=== PATIENT | female | born 1980 | race American Indian/Alaskan Native ===

== ENCOUNTER 2018-06-30 12:12 | Outpatient (CLI) | payer OTHER | END 2018-06-30 12:51 | disposition home or self-care (01) | LOC: NST 12:12 | DX: Z34.83 Encounter for supervision of other normal pregnancy, third trimester (principal) ==

== ENCOUNTER 2018-07-21 11:13 | Outpatient (CLI) | payer OTHER | END 2018-07-21 13:19 | disposition home or self-care (01) | LOC: NST 11:13 | DX: Z34.83 Encounter for supervision of other normal pregnancy, third trimester (principal) ==

== ENCOUNTER 2018-07-27 17:23 | Inpatient (IN) | payer OTHER ==
[~2018-07-27] VITALS: Ht 160 cm; Wt 2.3 kg
[2018-07-27] MEDS ORDERED: METHYLDOPA250 MG PO (17:58)
[2018-07-27] MEDS ORDERED: ASA81 MG PO (17:59)
[2018-07-27] MEDS ORDERED: LABETALOL HCL200 MG PO (17:59)
[2018-07-27] MEDS ORDERED: SYNTHROID75 MCG PO (18:00)
[2018-08-02] MEDS ORDERED: CEFUROXIME500 MG PO (10:18)
[2018-08-02] MEDS ORDERED: OXYC1TAB9 PO (10:18)
[2018-08-02] MEDS ORDERED: KETO10TA2 PO (10:19)
== END 2018-08-02 10:39 | disposition home or self-care (01) | DRG 786 ==
LOC: LDR 17:23 → OB/GYN 17:23
PROVIDERS: ADMIT Obstetrics & Gynecology Maternal & Fetal Medicine
PROC: 4A1HXCZ Monitoring of Products of Conception, Cardiac Rate, External Approach (ICD-10-PCS; 2018-07-27)
PROC: 10D00Z1 Extraction of Products of Conception, Low, Open Approach (ICD-10-PCS; principal; 2018-07-30 07:30)
DX: O82 Encounter for cesarean delivery without indication (principal); O60.14X0 Preterm labor third trimester with preterm delivery third trimester, not applicable or unspecified; Z3A.35 35 weeks gestation of pregnancy; Z37.0 Single live birth; Z22.330 Carrier of Group B streptococcus